=== PATIENT | female | born 1980 | race Caucasian/White ===

== ENCOUNTER 2018-03-29 19:25 | Emergency (ER) | payer BC ==
--- NOTE | 2018-03-29 19:32 | ED Physician Documentation ---
General Adult - HISTORIAN Historian: patient - HPI Stated Complaint: possible shingles rash Chief Complaint: Skin Rash Onset: days ago (5) Timing: still present Severity: mild Further Comments: yes (Shes states over the weekend she noticed a feeling of a rash on her left lateral side under breast wrapping around. However no rash was present. She did start taking her gabapentin after there was a burning sensation. 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 She now has some bumps of a rash on the left lateral side) Last known Well Code/Unknown Code: Unknown - ROS CONST: no problems EYES/ENT: none CVS/RESP: none GI/: none MS/SKIN/LYMPH: rash NEURO/PSYCH: headache - PAST HX Past History: none Surgeries/Procedures: , other (ortho ) Immunizations: UTD Allergies/Adverse Reactions: Allergies Allergy/AdvReac Type Severity Reaction Status Date / Time No Known Drug Allergies AdvReac Unknown No Reaction Verified 03/29/18 19:44 Home Medications: Ambulatory Orders Medication Instructions Recorded NK 03/29/18 - SOCIAL HX Smoking History: non-smoker Alcohol Use: none Drug Use: none - FAMILY HX Family History: No - REVIEWED ASSESSMENTS Nursing Assessment Reviewed: Yes Vitals Reviewed: Yes General Adult Physical Exam - PHYSICAL EXAM GENERAL APPEARANCE: no distress EENT: eye inspection normal, ENT inspection normal NECK: normal inspection RESPIRATORY: no resp distress, chest non-tender, breath sounds normal CVS: reg rate & rhythm, heart sounds normal, equal pulses ABDOMEN: soft, normal bowel sounds BACK: normal inspection SKIN: warm/dry, other (several small red raised area on left lateral side ) EXTREMITIES: non-tender, normal range of motion, no evidence of injury, no edema NEURO: oriented X3, CN's nml as tested, sensation nml, mood/affect nml, cognition normal Discharge Clincal Impression: Shingles outbreak Qualifiers: Herpes zoster complications: without complications Qualified Code(s): B02.9 - Zoster without complications Referrals: Lyssa Porter MD [Primary Care Provider] - 2 Days Comments: 1. Acyclovir 800 mg take 1 by mouth five times per day x 7 days 2. Gabapentin 300 mg take 1 by mouth twice per day x 10 3. OTC meds as needed for pain 4. Keep area clean and dry 5. Return to PCP in 2-4 days if increase in symptoms 6. Return to ER for any concerns Condition: Stable Disposition: 01 HOME, SELF-CARE Decision to Admit: NO Date of Decison to Admit: 03/29/18 Decision Time: 19:54
[2018-03-29 20:11] VITALS: BP 133/91
== END 2018-03-29 20:00 | disposition home or self-care (01) ==
LOC: ED 19:25
DX: B02.9 Zoster without complications (principal)